=== PATIENT | male | born 1975 | race African-American/Black ===

== ENCOUNTER 2016-11-09 19:35 | Emergency (ER) | payer OTHER ==
[~2016-11-09] VITALS: Ht 172.7 cm; Wt 66.2 kg
== END 2016-11-09 20:49 | disposition left against medical advice (07) ==
LOC: CED 19:35
DX: E11.649 Type 2 diabetes mellitus with hypoglycemia without coma (principal); Z98.890 Other specified postprocedural states
CPT/HCPCS: 36415; 82947; 99284